=== PATIENT | female | born 1935 | race African-American/Black ===

== ENCOUNTER 2018-04-06 15:23 | Inpatient (IN) | payer MEDICARE, MEDICAID ==
[~2018-04-06] VITALS: Ht 162.6 cm; Wt 73.5 kg
[2018-04-06] MEDS ORDERED: IPRATROPIUM/ALBUTEROL 0.5-3(2.5)MG/3ML NEB HHN ONE (16:00)
[2018-04-06] MEDS ORDERED: LEVOFLOXACIN 750MG PREMIX 150 ML IV ONE (16:00)
[2018-04-06] MEDS ORDERED: MORPHINE SULFATE 10 MG/ML CPJ IV ONE (16:00)
[2018-04-06] MEDS ORDERED: ONDANSETRON HCL 4MG/2ML INJ IV STA (16:00)
[2018-04-06] MEDS ORDERED: METHYLPREDNISOLONE SOD SUCC 125 MG/2 ML VIAL IV STA (16:00)
[2018-04-06 18:10] LABS: CLARITY URINE CLOUDY (CLEAR); COLOR URINE YELLOW (YELLOW); KETONES URINE NEGATIVE (NEGATIVE); LEUKOCYTE ESTERASE URINE 2+ (NEGATIVE); NITRITE URINE NEGATIVE (NEGATIVE); OCCULT BLOOD URINE NEGATIVE (NEGATIVE); PROTEIN URINE NEGATIVE (NEGATIVE); SPECIFIC GRAVITY URINE 1.015 (1.005-1.030)
[2018-04-06 18:26] LABS: HEMATOCRIT. 32.7 % (36.0-48.0); HEMOGLOBIN. 10.5 g/dL (12.0-16.0); MEAN CORPUSCULAR HEMOGLOBIN 24.5 pg (28.0-32.0); MEAN CORPUSCULAR VOLUME 76.4 fL (81.0-99.0); MEAN PLATELET VOLUME 9.8 fl (7.4-10.4); PLATELET 135 x1000/uL (130-400); RED BLOOD CELL COUNT 4.28 mill/uL (4.2-5.4)
[2018-04-06 18:30] LABS: CHLORIDE 111 mEq/L (98-107); INR 1.1; PARTIAL THROMBOPLASTIN TIME 27.1 sec (23.4-31.0); PROTHROMBIN TIME 11.4 sec (9.1-11.1)
[2018-04-06 19:18] LABS: PLATELET ESTIMATE NORMAL
[2018-04-06] MEDS ORDERED: ONDANSETRON HCL 4MG/2ML INJ IV PRN (23:30)
[2018-04-06] MEDS ORDERED: MAGNESIUM/ALUMINUM HYDROXIDE/SIMETHICONE 30ML UDC PO PRN (23:30)
[2018-04-06] MEDS ORDERED: CLONIDINE 0.1MG TABLET PO PRN (23:30)
[2018-04-06] MEDS ORDERED: LEVOFLOXACIN 500MG PREMIX 100 ML IV SCH (23:30)
[2018-04-06] MEDS ORDERED: ACETAMINOPHEN 325MG TABLET PO PRN (23:30)
[2018-04-07] MEDS ORDERED: ALPRAZOLAM 0.25 MG TABLET PO PRN (02:15)
[2018-04-07] MEDS: FUROSEMIDE 40MG/4ML VIAL IVP SCH (10:00)
[2018-04-07 11:16] VITALS: BP 167/67
[2018-04-07 12:13] VITALS: BP 130/43
[2018-04-07] MEDS: ASPIRIN 325MG EC TABLET PO SCH (12:28)
[2018-04-07] MEDS: AMIODARONE HCL 200 MG TABLET PO SCH (12:28)
[2018-04-07] MEDS: CARVEDILOL 25MG TABLET PO SCH ×2 (12:29→21:01)
[2018-04-07] MEDS ORDERED: ALPR-393 PO (13:50)
[2018-04-07] MEDS ORDERED: HYDR-4133 PO (13:50)
[2018-04-07] MEDS ORDERED: GABA-531 PO (13:50)
[2018-04-07] MEDS ORDERED: AMI2 PO (13:50)
[2018-04-07] MEDS ORDERED: ASPI-1079 PO (13:50)
[2018-04-07] MEDS ORDERED: FLUT1AER IH (13:50)
[2018-04-07] MEDS ORDERED: ATOR40TA70 PO (13:50)
[2018-04-07] MEDS ORDERED: CARV25TA47 PO (13:50)
[2018-04-07] MEDS ORDERED: FURO40TA5 PO (13:50)
[2018-04-07] MEDS: HYDRALAZINE HCL 10MG TABLET PO SCH ×2 (14:00→21:48)
[2018-04-07] MEDS ORDERED: KETOROLAC 30MG/ML VIAL IV PRN (14:00)
[2018-04-07] MEDS: ENOXAPARIN 40MG/0.4ML SYR SUBCUT SCH (14:27)
[2018-04-07] MEDS: SODIUM CHLORIDE 0.9% INJ 3ML FLUSH IVF SCH ×2 (14:28→21:47)
[2018-04-07] MEDS ORDERED: LEVOFLOXACIN 250MG PREMIX 50 ML IV SCH (16:00)
[2018-04-07 16:07] VITALS: BP 117/48
[2018-04-07] MEDS ORDERED: DIPHENHYDRAMINE 50MG/ML VIAL IV PRN (19:45)
[2018-04-07 20:00] VITALS: BP_SYST 139; BP_SYST 140; BP_DIAS 59; BP_DIAS 66
[2018-04-07] MEDS: ATORVASTATIN CALCIUM 40MG TABLET PO SCH (21:00)
[2018-04-07] MEDS: CEFTRIAXONE 1 G PREMIX 50 ML IV SCH (21:47)
[2018-04-07 23:58] VITALS: BP 124/45
[2018-04-08] MEDS ORDERED: IPRATROPIUM/ALBUTEROL 0.5-3(2.5)MG/3ML NEB HHN PRN (02:45)
[2018-04-08 04:00] VITALS: BP 133/60
[2018-04-08] MEDS: HYDRALAZINE HCL 10MG TABLET PO SCH ×3 (06:00→21:55)
[2018-04-08] MEDS: SODIUM CHLORIDE 0.9% INJ 3ML FLUSH IVF SCH ×3 (06:15→21:55)
[2018-04-08 08:17] VITALS: BP 166/85
[2018-04-08] MEDS: ASPIRIN 325MG EC TABLET PO SCH (08:39)
[2018-04-08] MEDS: CARVEDILOL 25MG TABLET PO SCH ×2 (08:40→21:54)
[2018-04-08] MEDS: AMIODARONE HCL 200 MG TABLET PO SCH (08:47)
[2018-04-08] MEDS: ENOXAPARIN 40MG/0.4ML SYR SUBCUT SCH (08:48)
[2018-04-08] MEDS: FUROSEMIDE 40MG/4ML VIAL IVP SCH (08:48)
[2018-04-08 12:00] VITALS: BP 135/88
[2018-04-08 16:00] VITALS: BP 141/83
[2018-04-08] MEDS ORDERED: METOLAZONE 2.5MG TABLET PO NR (16:00)
[2018-04-08] MEDS ORDERED: FUROSEMIDE 40MG/4ML VIAL IVP NR (16:00)
[2018-04-08 17:52] LABS: HEMATOCRIT 31.8 % (36.0-48.0); MEAN CORPUSCULAR VOLUME 76.1 fL (81.0-99.0); PLATELET 165 x1000/uL (130-400); RED BLOOD CELL COUNT 4.18 mill/uL (4.2-5.4); RED CELL DISTRIBUTION WIDTH 17.6 % (11.6-14.6)
[2018-04-08 20:00] VITALS: BP_SYST 155; BP_SYST 157; BP_DIAS 70; BP_DIAS 79
[2018-04-08] MEDS: ATORVASTATIN CALCIUM 40MG TABLET PO SCH (21:54)
[2018-04-08] MEDS: CEFTRIAXONE 1 G PREMIX 50 ML IV SCH (21:55)
[2018-04-09] VITALS: BP 163/87
[2018-04-09 04:00] VITALS: BP 130/74
[2018-04-09] MEDS: SODIUM CHLORIDE 0.9% INJ 3ML FLUSH IVF SCH ×2 (05:30→13:06)
[2018-04-09] MEDS: HYDRALAZINE HCL 10MG TABLET PO SCH ×2 (05:46→13:06)
[2018-04-09 06:03] LABS: HEMATOCRIT. 32.2 % (36.0-48.0); HEMOGLOBIN. 10.6 g/dL (12.0-16.0); MEAN CORPUSCULAR HEMOGLOBIN 24.6 pg (28.0-32.0); MEAN CORPUSCULAR VOLUME 74.5 fL (81.0-99.0); MEAN PLATELET VOLUME 9.7 fl (7.4-10.4); PLATELET 171 x1000/uL (130-400); RED BLOOD CELL COUNT 4.31 mill/uL (4.2-5.4); RED CELL DISTRIBUTION WIDTH 17.6 % (11.6-14.6)
[2018-04-09 08:00] VITALS: BP 127/48
[2018-04-09] MEDS: FUROSEMIDE 40MG/4ML VIAL IVP SCH (08:47)
[2018-04-09] MEDS: ENOXAPARIN 40MG/0.4ML SYR SUBCUT SCH (08:49)
[2018-04-09] MEDS: CARVEDILOL 25MG TABLET PO SCH (08:50)
[2018-04-09] MEDS: AMIODARONE HCL 200 MG TABLET PO SCH (08:50)
[2018-04-09] MEDS: ASPIRIN 325MG EC TABLET PO SCH (08:50)
[2018-04-09 12:00] VITALS: BP 87/58
[2018-04-09 13:57] VITALS: BP 110/58
[2018-04-09 14:03] LABS: PLATELET ESTIMATE NORMAL
== END 2018-04-09 15:56 | disposition home or self-care (01) | DRG 73 ==
LOC: ER 15:23 → 7WST 22:25 → EDBEDREQ 22:36 → EDBEDREQTM 22:36 → ENRESERV 04-07 08:09
PROVIDERS: ADMIT Internal Medicine; ATTEND Internal Medicine
DX: G90.8 Other disorders of autonomic nervous system (principal); I50.43 Acute on chronic combined systolic (congestive) and diastolic (congestive) heart failure; N39.0 Urinary tract infection, site not specified; D64.9 Anemia, unspecified; I27.20 Pulmonary hypertension, unspecified; R79.1 Abnormal coagulation profile; E78.00 Pure hypercholesterolemia, unspecified; G89.29 Other chronic pain; I11.0 Hypertensive heart disease with heart failure; I48.0 Paroxysmal atrial fibrillation; Z96.651 Presence of right artificial knee joint; F41.9 Anxiety disorder, unspecified; I49.5 Sick sinus syndrome; M54.9 Dorsalgia, unspecified; Z53.29 Procedure and treatment not carried out because of patient's decision for other reasons; Z86.19 Personal history of other infectious and parasitic diseases; Z86.73 Personal history of transient ischemic attack (TIA), and cerebral infarction without residual deficits; Z95.810 Presence of automatic (implantable) cardiac defibrillator; Z79.82 Long term (current) use of aspirin; Z79.899 Other long term (current) drug therapy
CPT/HCPCS: 36415; 71045; 80048; 83540; 83550; 83605; 83735; 83880; 84443; 84484; 85027; 85379; 87077; 87186; 93005; 93306; 93880; 93970; 94640; 96365; 96375; 97535; 99285; J0696; J1200; J1650; J1885; J1940; J1956; J2270; J2405; J2930; J7040; J7620; A4315

== ENCOUNTER 2020-08-09 14:46 | Inpatient (IN) | payer MEDICARE, MEDICAID ==
[~2020-08-09] VITALS: Ht 157.5 cm; Wt 76.9 kg
[~2020-08-09 14:46] MED LIST: ALPR-393 PO; AMI2 PO; ASPI-1079 PO; ATOR40TA70 PO; CARV25TA47 PO; FLUT1AER IH; FURO40TA5 PO; GABA-532 PO; HYDR-4133 PO
[2020-08-09 19:00] LABS: BASOPHILS % 0.6 % (0.0-2.0); EOSINOPHILS % 0.4 % (0.0-5.0); HEMATOCRIT. 34.2 % (36.0-48.0); HEMOGLOBIN. 11.1 g/dL (12.0-16.0); LYMPHOCYTES % 20.1 % (20.0-50.0); MEAN CORPUSCULAR HEMOGLOBIN 24.6 pg (28.0-32.0); MEAN CORPUSCULAR VOLUME 75.7 fL (81.0-99.0); MEAN PLATELET VOLUME 10.5 fl (7.4-10.4); MONOCYTES % 11.8 % (2.0-8.0); NEUTROPHILS % 67.1 % (40.0-76.0); PLATELET 193 x1000/uL (130-400); RED BLOOD CELL COUNT 4.51 mill/uL (4.2-5.4); RED CELL DISTRIBUTION WIDTH 17.5 % (11.6-14.6)
[2020-08-09 19:06] LABS: CHLORIDE 108 mEq/L (98-107)
[2020-08-09] MEDS ORDERED: FUROSEMIDE 40MG/4ML VIAL IVP NR (19:45)
[2020-08-09] MEDS ORDERED: LISINOPRIL 10MG TABLET PO SCH (20:15)
[2020-08-09] MEDS ORDERED: MAGNESIUM/ALUMINUM HYDROXIDE/SIMETHICONE 30ML UDC PO PRN (20:15)
[2020-08-09] MEDS ORDERED: DOCUSATE SODIUM 100MG CAPSULE PO PRN (20:15)
[2020-08-09] MEDS ORDERED: CLONIDINE 0.1MG TABLET PO PRN (20:15)
[2020-08-09] MEDS ORDERED: ACETAMINOPHEN 325MG TABLET PO PRN (20:15)
[2020-08-10] VITALS (8 sets, daily range): BP systolic 117–172; BP diastolic 65–87
[2020-08-10] MEDS: HYDROCODONE/ACETAMINOPHEN 5/325MG TABLET PO PRN ×2 (00:54→17:06)
[2020-08-10] MEDS: ONDANSETRON HCL 4MG/2ML INJ IV PRN (03:57)
[2020-08-10] MEDS ORDERED: FUROSEMIDE 40MG/4ML VIAL IV SCH (09:00)
[2020-08-10] MEDS: AMLODIPINE 10MG TABLET PO SCH (09:17)
[2020-08-10] MEDS: MULTIVITAMINS,THER W-MINERALS TABLET PO SCH (09:18)
[2020-08-10 09:27] LABS: BASOPHILS % 0.4 % (0.0-2.0); EOSINOPHILS % 0.4 % (0.0-5.0); HEMATOCRIT. 30.4 % (36.0-48.0); HEMOGLOBIN. 9.7 g/dL (12.0-16.0); LYMPHOCYTES % 14.9 % (20.0-50.0); MEAN CORPUSCULAR HEMOGLOBIN 24.5 pg (28.0-32.0); MEAN CORPUSCULAR VOLUME 76.9 fL (81.0-99.0); MEAN PLATELET VOLUME 9.6 fl (7.4-10.4); MONOCYTES % 13.3 % (2.0-8.0); PLATELET 144 x1000/uL (130-400); RED BLOOD CELL COUNT 3.96 mill/uL (4.2-5.4); RED CELL DISTRIBUTION WIDTH 17.8 % (11.6-14.6)
[2020-08-10 09:40] LABS: CHLORIDE 111 mEq/L (98-107)
[2020-08-10 09:46] LABS: LDL CHOLESTEROL 50 mg/dL (5-100)
[2020-08-10 09:47] LABS: HDL CHOLESTEROL 55 mg/dL (40-59)
[2020-08-10] MEDS ORDERED: TRAMADOL 50MG TABLET PO PRN (10:45)
[2020-08-10] MEDS: DIPHENHYDRAMINE 50MG/ML VIAL IV SCH ×2 (15:54→22:32)
[2020-08-10] MEDS ORDERED: METHYLPREDNISOLONE SOD SUCC 125 MG/2 ML VIAL IV NR (17:29)
[2020-08-10] MEDS: ENOXAPARIN 40MG/0.4ML SYR SUBCUT SCH ×2 (21:16→21:17)
[2020-08-11] VITALS (12 sets, daily range): BP systolic 97–147; BP diastolic 58–78
[2020-08-11] MEDS: DIPHENHYDRAMINE 50MG/ML VIAL IV SCH (04:01)
[2020-08-11] MEDS: AMLODIPINE 10MG TABLET PO SCH (10:08)
[2020-08-11] MEDS: MULTIVITAMINS,THER W-MINERALS TABLET PO SCH (10:08)
[2020-08-11] MEDS: HYDRALAZINE HCL 10MG TABLET PO SCH (14:13)
[2020-08-11] MEDS: GABAPENTIN 300MG CAPSULE PO SCH ×2 (14:13→21:13)
[2020-08-11] MEDS: ASPIRIN 81MG TABLET PO SCH (14:13)
[2020-08-11] MEDS: AMIODARONE HCL 200 MG TABLET PO SCH (14:13)
[2020-08-11] MEDS ORDERED: IPRATROPIUM/ALBUTEROL 0.5-3(2.5)MG/3ML NEB HHN PRN (16:45)
[2020-08-11] MEDS: HYDROCODONE/ACETAMINOPHEN 5/325MG TABLET PO PRN (18:25)
[2020-08-11] MEDS: CARVEDILOL 12.5MG TABLET PO SCH (20:20)
[2020-08-11] MEDS: ALPRAZOLAM 0.5 MG TABLET PO SCH (20:21)
[2020-08-11] MEDS: ATORVASTATIN CALCIUM 40MG TABLET PO SCH (21:13)
[2020-08-11] MEDS: ENOXAPARIN 40MG/0.4ML SYR SUBCUT SCH (21:13)
[2020-08-12] VITALS (12 sets, daily range): BP systolic 95–187; BP diastolic 58–98
[2020-08-12] MEDS: GABAPENTIN 300MG CAPSULE PO SCH ×3 (05:13→22:00)
[2020-08-12] MEDS: HYDRALAZINE HCL 10MG TABLET PO SCH (09:31)
[2020-08-12] MEDS: MULTIVITAMINS,THER W-MINERALS TABLET PO SCH (09:31)
[2020-08-12] MEDS: ASPIRIN 81MG TABLET PO SCH (09:31)
[2020-08-12] MEDS: CARVEDILOL 12.5MG TABLET PO SCH ×2 (09:32→21:00)
[2020-08-12] MEDS: FUROSEMIDE 40MG TABLET PO SCH (09:32)
[2020-08-12] MEDS: ONDANSETRON HCL 4MG/2ML INJ IV PRN ×2 (09:59→15:54)
[2020-08-12] MEDS: AMIODARONE HCL 200 MG TABLET PO SCH (09:59)
[2020-08-12] MEDS: ALPRAZOLAM 0.5 MG TABLET PO SCH (21:00)
[2020-08-12] MEDS: ATORVASTATIN CALCIUM 40MG TABLET PO SCH (21:00)
[2020-08-12] MEDS: ENOXAPARIN 40MG/0.4ML SYR SUBCUT SCH (21:00)
[2020-08-13] VITALS (14 sets, daily range): BP systolic 98–160; BP diastolic 44–83
[2020-08-13] MEDS: GABAPENTIN 300MG CAPSULE PO SCH ×3 (05:51→21:01)
[2020-08-13] MEDS: HYDRALAZINE HCL 10MG TABLET PO SCH (08:21)
[2020-08-13] MEDS: AMIODARONE HCL 200 MG TABLET PO SCH (08:21)
[2020-08-13] MEDS: ASPIRIN 81MG TABLET PO SCH (08:21)
[2020-08-13] MEDS: MULTIVITAMINS,THER W-MINERALS TABLET PO SCH (08:21)
[2020-08-13] MEDS: FUROSEMIDE 40MG TABLET PO SCH ×2 (08:21→21:01)
[2020-08-13] MEDS: CARVEDILOL 12.5MG TABLET PO SCH ×2 (08:21→21:00)
[2020-08-13] MEDS: HYDROCODONE/ACETAMINOPHEN 5/325MG TABLET PO PRN (10:38)
[2020-08-13 14:02] LABS: BG BASE EXCESS 0.7 mmol/L (-2.0-2.0); BG CARBOXYHEMOGLOBIN 0.2 % (0.5-1.5); BG DEOXYHEMOGLOBIN 26.5 % (0.0-5.0); BG FRACTION INSPIRED OXYGEN 21; BG HCO3 ACT 26.8 mmol/L (22.0-26.0); BG METHEMOGLOBIN 0.6 % (0.0-1.5); BG OXYGEN SATURATION 73.3 % (92.0-98.5); BG OXYHEMOGLOBIN 72.7 % (94.0-97.0); BG PCO2 49.5 mmHg (35.0-45.0); BG PH 7.352 (7.350-7.450); BG PO2 34.7 mmHg (75.0-100.0); BG TOTAL HEMOGLOBIN 11.6 g/dL (12.0-18.0); BG VENT MODE ROOM AIR
[2020-08-13] MEDS: ALPRAZOLAM 0.5 MG TABLET PO SCH (21:00)
[2020-08-13] MEDS: ATORVASTATIN CALCIUM 40MG TABLET PO SCH (21:01)
[2020-08-13] MEDS: ENOXAPARIN 40MG/0.4ML SYR SUBCUT SCH (21:01)
[2020-08-13] MEDS: CEFEPIME 1,000 MG in DEXTROSE 5% WATER 50 ML IV SCH (22:14)
[2020-08-14] VITALS (12 sets, daily range): BP systolic 68–150; BP diastolic 46–72
[2020-08-14] MEDS: FUROSEMIDE 40MG TABLET PO SCH ×2 (05:41→17:44)
[2020-08-14] MEDS: GABAPENTIN 300MG CAPSULE PO SCH ×3 (05:41→21:39)
[2020-08-14 06:09] LABS: BASOPHILS % 0.1 % (0.0-2.0); EOSINOPHILS % 0.2 % (0.0-5.0); HEMATOCRIT. 36.9 % (36.0-48.0); HEMOGLOBIN. 11.9 g/dL (12.0-16.0); LYMPHOCYTES % 12.5 % (20.0-50.0); MEAN CORPUSCULAR HEMOGLOBIN 25.1 pg (28.0-32.0); MEAN CORPUSCULAR VOLUME 77.9 fL (81.0-99.0); MEAN PLATELET VOLUME 9.9 fl (7.4-10.4); MONOCYTES % 12.7 % (2.0-8.0); NEUTROPHILS % 74.5 % (40.0-76.0); PLATELET 146 x1000/uL (130-400); RED BLOOD CELL COUNT 4.73 mill/uL (4.2-5.4)
[2020-08-14] MEDS: CARVEDILOL 12.5MG TABLET PO SCH ×2 (08:51→20:28)
[2020-08-14] MEDS: MULTIVITAMINS,THER W-MINERALS TABLET PO SCH (08:51)
[2020-08-14] MEDS: ASPIRIN 81MG TABLET PO SCH (08:51)
[2020-08-14] MEDS: HYDRALAZINE HCL 10MG TABLET PO SCH (08:51)
[2020-08-14] MEDS: AMIODARONE HCL 200 MG TABLET PO SCH (09:00)
[2020-08-14] MEDS: CEFEPIME 1,000 MG in DEXTROSE 5% WATER 50 ML IV SCH ×2 (09:46→21:39)
[2020-08-14 13:30] LABS: BG BASE EXCESS 6.5 mmol/L (-2.0-2.0); BG CARBOXYHEMOGLOBIN 0.4 % (0.5-1.5); BG DEOXYHEMOGLOBIN 2.7 % (0.0-5.0); BG FRACTION INSPIRED OXYGEN 44; BG HCO3 ACT 33.5 mmol/L (22.0-26.0); BG METHEMOGLOBIN 0.3 % (0.0-1.5); BG OXYGEN SATURATION 97.3 % (92.0-98.5); BG OXYHEMOGLOBIN 96.6 % (94.0-97.0); BG PCO2 60.3 mmHg (35.0-45.0); BG PH 7.362 (7.350-7.450); BG PO2 97.2 mmHg (75.0-100.0); BG SAMPLE SITE RIGHT RADIAL; BG TOTAL HEMOGLOBIN 11.2 g/dL (12.0-18.0); BG VENT MODE NASAL CANNULA
[2020-08-14 17:21] LABS: BG BASE EXCESS 2.8 mmol/L (-2.0-2.0); BG CARBOXYHEMOGLOBIN 0.5 % (0.5-1.5); BG DEOXYHEMOGLOBIN 6.1 % (0.0-5.0); BG FRACTION INSPIRED OXYGEN 32; BG HCO3 ACT 28.7 mmol/L (22.0-26.0); BG METHEMOGLOBIN 0.4 % (0.0-1.5); BG OXYGEN SATURATION 93.8 % (92.0-98.5); BG PCO2 51.1 mmHg (35.0-45.0); BG PH 7.368 (7.350-7.450); BG PO2 68.9 mmHg (75.0-100.0); BG SAMPLE SITE RIGHT RADIAL; BG TOTAL HEMOGLOBIN 9.4 g/dL (12.0-18.0); BG TOTAL RESPIRATORY RATE 20 b/min; BG VENT MODE NASAL CANNULA
[2020-08-14] MEDS: ATORVASTATIN CALCIUM 40MG TABLET PO SCH (20:28)
[2020-08-14] MEDS: ALPRAZOLAM 0.5 MG TABLET PO SCH (20:28)
[2020-08-14] MEDS: ENOXAPARIN 40MG/0.4ML SYR SUBCUT SCH (20:29)
[2020-08-15] VITALS (8 sets, daily range): BP systolic 87–105; BP diastolic 54–66
[2020-08-15] MEDS: FUROSEMIDE 40MG TABLET PO SCH (05:52)
[2020-08-15] MEDS: GABAPENTIN 300MG CAPSULE PO SCH ×2 (05:52→13:47)
[2020-08-15] MEDS: AMIODARONE HCL 200 MG TABLET PO SCH (08:40)
[2020-08-15] MEDS: HYDRALAZINE HCL 10MG TABLET PO SCH (08:40)
[2020-08-15] MEDS: CARVEDILOL 12.5MG TABLET PO SCH (08:40)
[2020-08-15] MEDS: ASPIRIN 81MG TABLET PO SCH (10:15)
[2020-08-15] MEDS: MULTIVITAMINS,THER W-MINERALS TABLET PO SCH (10:15)
[2020-08-15] MEDS: CEFEPIME 1,000 MG in DEXTROSE 5% WATER 50 ML IV SCH (10:16)
== END 2020-08-15 15:46 | disposition home or self-care (01) | DRG 915 ==
LOC: ER 14:46 → 8WST 20:39 → EDBEDREQ 20:44 → EDBEDREQTM 20:44 → EDBEDREQSVC 20:44 → ENRESERV 21:41 → 5EST 08-10 22:20
PROVIDERS: ADMIT Hospitalist; ATTEND Hospitalist
DX: T78.3XXA Angioneurotic edema, initial encounter (principal); J96.01 Acute respiratory failure with hypoxia; I50.23 Acute on chronic systolic (congestive) heart failure; M48.54XA Collapsed vertebra, not elsewhere classified, thoracic region, initial encounter for fracture; E44.0 Moderate protein-calorie malnutrition; I11.0 Hypertensive heart disease with heart failure; E78.5 Hyperlipidemia, unspecified; D64.9 Anemia, unspecified; M48.061 Spinal stenosis, lumbar region without neurogenic claudication; Z68.30 Body mass index [BMI] 30.0-30.9, adult; G89.29 Other chronic pain; J45.909 Unspecified asthma, uncomplicated; R62.7 Adult failure to thrive; Z82.49 Family history of ischemic heart disease and other diseases of the circulatory system; Z88.8 Allergy status to other drugs, medicaments and biological substances; Z99.3 Dependence on wheelchair; T46.4X5A Adverse effect of angiotensin-converting-enzyme inhibitors, initial encounter; Y92.89 Other specified places as the place of occurrence of the external cause
CPT/HCPCS: 36415; 36600; 71045; 72128; 72131; 74176; 80048; 80053; 80061; 82375; 82805; 83880; 84484; 85025; 85379; 93005; 93970; 97110; 97162; 99285; C1893; J0692; J1200; J1650; J1940; J2405; J2930; J7060

== ENCOUNTER 2021-03-24 11:00 | Emergency (ER) | payer MEDICARE, MEDICAID ==
[~2021-03-24] VITALS: Ht 152.4 cm; Wt 70.0 kg
[2021-03-24] MEDS ORDERED: ASPIRIN 81MG TABLET PO ONE (11:30)
[2021-03-24] MEDS ORDERED: NITROGLYCERIN 0.4MG TABLET SL SL PRN (11:30)
[2021-03-24 13:10] LABS: HEMATOCRIT. 28.3 % (36.0-48.0); HEMOGLOBIN. 9.2 g/dL (12.0-16.0); MEAN CORPUSCULAR HEMOGLOBIN 24.1 pg (28.0-32.0); MEAN CORPUSCULAR VOLUME 74.2 fL (81.0-99.0); MEAN PLATELET VOLUME 9.5 fl (7.4-10.4); PLATELET 250 x1000/uL (130-400); RED BLOOD CELL COUNT 3.82 mill/uL (4.2-5.4); RED CELL DISTRIBUTION WIDTH 19.1 % (11.6-14.6)
[2021-03-24 13:17] LABS: CHLORIDE 110 mEq/L (98-107)
[2021-03-24 13:22] LABS: D-DIMER 0.91 mg/L FEU (<0.50); INR 1.2; PARTIAL THROMBOPLASTIN TIME 32.8 sec (23.4-31.0); PROTHROMBIN TIME 12.3 sec (9.6-11.0)
[2021-03-24 13:41] LABS: PLATELET ESTIMATE NORMAL
[2021-03-24] MEDS ORDERED: POTASSIUM CHLORIDE 20MEQ TABLET SR PO ONE (14:15)
[2021-03-24] MEDS ORDERED: ENOXAPARIN 80MG/0.8ML SYR SUBCUT ONE (14:30)
[2021-03-24] MEDS ORDERED: BENZ100C86 PO (16:40)
[2021-03-24] MEDS ORDERED: SUCR1TAB PO (16:40)
[2021-03-24] MEDS ORDERED: PANT40TA51 PO (16:40)
[2021-03-24] MEDS ORDERED: FURO20TA4 PO (16:40)
[2021-03-24] MEDS ORDERED: AMI2 (16:40)
[2021-03-24] MEDS ORDERED: APIX5TAB PO (16:40)
[2021-03-24] MEDS ORDERED: DILT-104 PO (16:40)
[2021-03-24] MEDS ORDERED: LOSA100T32 PO (16:40)
[2021-03-24] MEDS ORDERED: ACETAMINOPHEN 325MG TABLET PO PRN ×2 (16:45)
[2021-03-24] MEDS ORDERED: GUAIFENESIN 200MG/10ML SUGAR FREE UDC PO PRN (16:45)
[2021-03-24] MEDS ORDERED: MAGNESIUM/ALUMINUM HYDROXIDE/SIMETHICONE 30ML UDC PO PRN (16:45)
[2021-03-24] MEDS ORDERED: ONDANSETRON HCL 4MG/2ML INJ IV PRN (16:45)
[2021-03-24] MEDS ORDERED: HYDROCODONE/ACETAMINOPHEN 5/325MG TABLET PO PRN (16:45)
[2021-03-24] MEDS ORDERED: GABAPENTIN 300MG CAPSULE PO SCH (17:00)
[2021-03-24] MEDS ORDERED: AMIODARONE HCL 200 MG TABLET PO SCH (17:00)
[2021-03-24] MEDS ORDERED: ACETAMINOPHEN 500MG TABLET PO PRN (17:15)
[2021-03-24] MEDS ORDERED: OXYCODONE HCL/ACETAMINOPHEN 5/325MG TABLET PO PRN (17:15)
[2021-03-24] MEDS ORDERED: NALOXONE HCL 0.4MG/ML VIAL IV PRN (17:30)
[2021-03-24] MEDS ORDERED: DICL100G31 TP (18:11)
[2021-03-24] MEDS ORDERED: ACET-2708 MT (18:11)
[2021-03-24 20:15] VITALS: BP 146/80
[2021-03-24] MEDS ORDERED: LOSARTAN POTASSIUM 100 MG TABLET PO SCH (21:00)
[2021-03-25] MEDS ORDERED: PANTOPRAZOLE 40MG DR TABLET PO SCH (07:50)
[2021-03-25] MEDS ORDERED: ATORVASTATIN CALCIUM 40MG TABLET PO SCH (09:00)
[2021-03-25] MEDS ORDERED: HYDRALAZINE HCL 10MG TABLET PO SCH (09:00)
[2021-03-25] MEDS ORDERED: ENOXAPARIN 30MG/0.3ML SYR SUBCUT SCH (15:00)
== END 2021-03-24 20:30 | disposition home or self-care (01) ==
LOC: ER 11:04 → EDBEDREQTM 14:36 → EDBEDREQ 14:36 → EDBEDREQTM 14:38 → SUPCPDRO 16:10 → CANRESERV 20:28 → ENRESERV 20:28 → ER 20:30 → CANBEDREQ 22:35
DX: J44.9 Chronic obstructive pulmonary disease, unspecified (principal); E87.6 Hypokalemia; R10.12 Left upper quadrant pain; E78.00 Pure hypercholesterolemia, unspecified; I11.0 Hypertensive heart disease with heart failure; I50.9 Heart failure, unspecified; R07.9 Chest pain, unspecified; Z79.899 Other long term (current) drug therapy
CPT/HCPCS: 36415; 71045; 71100; 78580; 80053; 83690; 83880; 84484; 85025; 85379; 85610; 85730; 93005; 93970; 96372; 96374; 99285; A9540; J1650; J2405